=== PATIENT | male | born 1955 | race Caucasian/White ===

== ENCOUNTER 2023-12-29 13:20 | Inpatient (IN) | payer OTHER ==
[2023-12-29 14:01] VITALS: BMI 24.6
[2023-12-29] MEDS ORDERED: BUPRENORPHINE HCL 150 MCG, BUPRENORPHINE HCL 75 MCG BC PRN (15:28)
[2023-12-29] MEDS ORDERED: ONDANSETRON *ODT* 4 MG TABLET SL PRN (16:22)
[2023-12-29] MEDS ORDERED: BENZONATATE 200 MG CAPSULE PO PRN (16:22)
[2023-12-29] MEDS ORDERED: POLYETHYLENE GLYCOL (HEALTHYLAX) 3350 17 GM PACKET PO PRN (16:22)
[2023-12-29] MEDS ORDERED: LOPERAMIDE HCL 2 MG CAPSULE PO PRN (16:22)
[2023-12-29] MEDS ORDERED: BENZOCAINE/MENTHOL (CHLORASEPTIC ) LOZENGE MM PRN (16:22)
[2023-12-29] MEDS ORDERED: NALOXONE HCL 0.4 MG/ML VIAL IM PRN (16:22)
[2023-12-29] MEDS ORDERED: MAG HYDROX/AL HYDROX/SIMETH 30 ML UNIT-DOSE CUP PO PRN (16:22)
[2023-12-29] MEDS ORDERED: BISMUTH SUBSALICYLATE 524 MG/30 ML PO PRN (16:22)
[2023-12-29] MEDS ORDERED: IBUPROFEN 400 MG TABLET (FP) PO PRN (16:22)
[2023-12-29] MEDS ORDERED: DICYCLOMINE HCL 10 MG CAPSULE PO PRN (16:22)
[2023-12-29] MEDS ORDERED: MAGNESIUM HYDROX 2400MG/30ML ORAL SUSPENSION 30 ML CUP PO PRN (16:22)
[2023-12-29] MEDS ORDERED: guaiFENesin 600 MG TABLET.ER (FP) PO PRN (16:22)
[2023-12-29] MEDS ORDERED: ACETAMINOPHEN 325 MG TABLET (FP) PO PRN (16:22)
[2023-12-29] MEDS ORDERED: NALOXONE HCL (KLOXXADO) 8 MG SPRAY NS PRN (16:22)
[2023-12-29] MEDS ORDERED: BUPRENORPHINE HCL 150 MCG FILM BC ONE (16:28)
[2023-12-29] MEDS ORDERED: BUPRENORPHINE HCL 75 MCG FILM BC ONE (16:29)
[2023-12-29] MEDS ORDERED: cloNIDine HCL 0.1 MG TABLET ONE (16:29)
[2023-12-29] MEDS: BUPRENORPHINE HCL 150 MCG, BUPRENORPHINE HCL 75 MCG BC ONE (16:39)
[2023-12-29] MEDS: cloNIDine HCL 0.1 MG TABLET PO ONE (16:40)
[2023-12-29] MEDS: THIAMINE 100 MG TABLET PO SCH (22:37)
[2023-12-29] MEDS: MELATONIN 5 MG TABLETS PO SCH (22:37)
[2023-12-30] MEDS ORDERED: BUPRENORPHINE HCL 150 MCG, BUPRENORPHINE HCL 75 MCG BC PRN
[2023-12-30] MEDS: BUPRENORPHINE HCL 150 MCG, BUPRENORPHINE HCL 75 MCG BC SCH (06:01)
[2023-12-30] MEDS: IBUPROFEN 600 MG TABLET (FP) PO PRN (06:04)
[2023-12-30] MEDS: METHOCARBAMOL 500 MG TABLET PO PRN (06:04)
[2023-12-30] MEDS: PRENATAL VITAMINS W/ FOLIC ACID TABLET (FP) PO SCH (10:39)
[2023-12-30 11:14] LABS: HEMATOCRIT 40.3 % (35.4-49); HEMOGLOBIN 13.9 GM/dL (11.7-16.9); MCH 27.7 pg (25.7-33.7); MCHC 34.5 g/dl (32.0-35.9); MEAN CELL VOLUME 80.3 fl (80-96); PLATELET COUNT 261 10^3/uL (134-434); RBC 5.01 M/mm3 (4.00-5.60); WHITE BLOOD COUNT 6.9 K/mm3 (4.0-10.0)
[2023-12-30] MEDS: amLODIPine BESYLATE 5 MG TABLET (FP) PO SCH (17:13)
[2023-12-30] MEDS: hydrOXYzine PAMOATE 25 MG CAPSULE (FP) PO PRN (22:27)
[2023-12-30] MEDS: cloNIDine HCL 0.1 MG TABLET PO PRN (22:27)
[2023-12-31] MEDS: BUPRENORPHINE HCL 450 MCG FILM BC SCH (05:46)
[2023-12-31] MEDS: diazePAM 5 MG TABLET PO PRN (09:09)
[2023-12-31] MEDS: LIDOCAINE 4% PATCH TP SCH (14:42)
[2023-12-31] MEDS: LIDOCAINE PATCH REMOVAL MC SCH (22:26)
[2024-01-01] MEDS: BUPRENORPHINE/NALOXONE 4 MG/1 MG FILM PACKET SL SCH (06:01)
[2024-01-02] MEDS: BUPRENORPHINE/NALOXONE 8 MG/2 MG FILM PACKET SL ONE (05:54)
[2024-01-02 09:13] VITALS: BP 118/85; PULSE 63; RESP 18; TEMP 97.6
== END 2024-01-02 10:07 | disposition home or self-care (01) | DRG 897 ==
LOC: YASAS 13:20 → Y6N 16:35
PROVIDERS: ADMIT Allergy & Immunology; ATTEND Surgery
PROC: HZ2ZZZZ Detoxification Services for Substance Abuse Treatment (ICD-10-PCS; principal; 2023-12-29)
DX: F11.23 Opioid dependence with withdrawal (principal); I10 Essential (primary) hypertension; M54.50 Low back pain, unspecified; G89.29 Other chronic pain
CPT/HCPCS: 36415; 85027; 93005; 93010